=== PATIENT | female | born 1930 | race Caucasian/White ===

== ENCOUNTER 2017-07-27 12:10 | Inpatient (IN) | payer MEDICARE, MEDICAID ==
[2017-07-27] MEDS ORDERED: cefTRIAXone\\ROCEPHIN 2 GM in Sodium Chloride 0.9% 100 ML IVPB SCH (12:30)
[2017-07-27 13:06] LABS: Base Excess-Venous -0.6 mmol/L (0 (+/- 2.5)); CO2 Tension (PvCO2) 63.8 mmHg (41.0-51.0); Calcium, Ionized 1.13 mmol/L (1.12-1.32); Hemoglobin - Calc 12.7 g/dL (12.0-18.0); Lactate 4.47 mmol/L (0.50-2.20); Potassium 3.8 mmol/L (3.4-4.7); T. Carbon Dioxide 29.9 mmol/L (1.0-85.0); vO2 Saturation-calc 39.1 % (94-98)
[2017-07-27] MEDS ORDERED: Acetaminophen 650 MG Suppository ONE (13:14)
[2017-07-27 14:41] LABS: Amphetamine Not Detected (NotDetected); Barbiturates Screen Not Detected (NotDetected); Benzodiazepine Screen Not Detected (NotDetected); Cocaine Metabolite Screen Not Detected (NotDetected); Medtox Control Line Valid? VALID (VALID); Medtox Reader # READER 1; Methadone Not Detected (NotDetected); Methamphetamine Not Detected (NotDetected); Opiate Screen Not Detected (NotDetected); Oxycodone Screen Not Detected (NotDetected); Phencyclidine (PCP) Not Detected (NotDetected); THC/Cannabinoid Screen Not Detected (NotDetected); Tricyclic Screen Not Detected (NotDetected)
[2017-07-27 15:02] LABS: Acetaminophen Less than 6.0 mcg/mL (10.0-30.0); Alcohol Less than 10 mg/dL (Less than 10); Salicylate Less than 8.0 mg/dL (15.0-30.0)
[2017-07-27 16:26] LABS: Bilirubin Negative (Negative); Blood, Urine Moderate (Negative); Clarity TURBID (Clear); Glucose, Urine (Dipstick) >=1000 mg/dL (Negative); Leukocyte Negative (Negative); Nitrite Positive (Negative); Protein, Urine (Dipstick) 100 mg/dL (Neg-Trace); Specific Gravity, Urine 1.025 (1.002-1.036); Urobilinogen 0.2 mg/dL (0.2-1.0)
[2017-07-27 16:36] LABS: Bacteria/HPF 4+ HPF (None Seen); Hyaline Casts/LPF 0-3 HYALINE CAST LPF (0-3 Hyaline); RBC/HPF 0-3 HPF (0-3); Squamous Epithelial 0-3 HPF (0-3); WBC/HPF 0-3 HPF (0-3)
[2017-07-27] MEDS ORDERED: Levothyroxine 100 MCG SDV IVP SCH (17:15)
--- NOTE | 2017-07-27 17:18 | PDOC.FPRHP ---
- History of Present Illness Chief Complaint: AMS History of Present Illness: 87 yo F w/hx of DM, CAD s/p 3vCABG, TIA, HTN, and hypothyroid here with complaint of AMS for 2 days. Per daughter on Thursday she became unarousable and EMS was called to the house where she became more awake and it was recommended that she see her PCP on Thursday. The next day she was apparently close to her baseline. Then today she was again found to be unresponsive and was transported to an outside ED. Initial labs were fairly inconclusive, however there was concern for an infection of some kind due to her fever of 100.6 and elevated lactic acid. She was then transferred to our facility for further care. In this ED she was found to be hyperglycemic to 494, lactic acid increased to 4.9 and a new UA was positive for nitrites and 4+ bacteria. On evaluation she was difficult to arouse and would make a weak attempt to answer questions and was unable to cooperate with physical exam. When asleep, she was unresponsive to pain other than sternal rub. Blood and Urine cultures were drawn and pt was started on rocephin. Per daughter pt has been off of all meds for 3-4 months. PCP: none - Allergies/Adverse Reactions Allergies Allergy/AdvReac Type Severity Reaction Status Date / Time No Known Allergies Allergy Verified 07/15/16 23:08 - Home Medications Medication Instructions Recorded Confirmed Type Aspirin 81 mg PO DAILY 11/16/12 07/27/17 History Esomeprazole Magnesium [NexIUM] 40 mg PO DAILY 11/16/12 07/27/17 History metFORMIN [Glucophage] 500 mg PO BID- 09/14/15 07/27/17 History Insulin Glargine,Hum.Rec.Anlog 5 unit SQ QPM 10/08/15 07/27/17 History [Lantus Solostar] Allopurinol [Zyloprim] 100 mg PO DAILY tablet 07/19/16 07/27/17 Rx Lisinopril [Zestril] 2.5 mg PO DAILY 30 Days tab 07/19/16 07/27/17 Rx Memantine HCl [Namenda] 5 mg PO DAILY #30 tab 07/19/16 07/27/17 Rx Donepezil HCl [Donepezil HCl ODT] 07/27/17 History Levothyroxine Sodium [Synthroid] 125 mcg PO 00 07/27/17 07/27/17 History NIFEdipine [Procardia XL] 30 mg PO DAILY 07/27/17 07/27/17 History Comments: Per [facility] clinic records - History PMHx: DM Hypothyroid HTN CAD Dementia GERD h/o TIA PSHx: L3-5 laminectomy 3v CABG FHx: Unk Social: Per daughter, no tobacco, etoh, or recreational drugs - Review of Systems ROS unobtainable: due to mental status (Answers below from daugther) Respiratory: denies: cough, congestion, shortness of breath Cardiovascular: denies: chest pain Gastrointestinal: denies: nausea, vomiting Neurological: denies: syncope, seizure - Vital signs BP: 147/88 HR: 76 RR: 18 Tmax: 100.6 Pox: 98% on RA Wt: 63 kg - Physical Exam Constitutional: other (Difficult to arouse, A&O x0) HEENT: normocephalic and atraumatic, PERRLA, no scleral icterus Neck: FROM, trachea midline -Neck: Carotid bruit b/l Chest: no lesions Heart: RRR -Heart: systolic murmur Lungs: CTAB, no respiratory distress, good air movement, no wheezing Abdomen: soft, non-tender, bowel sounds present -Musculoskeletal: unable to evaluate -Neurological: unable to evaluate other than PERRLA Skin: good turgor -Skin: mottled LE Heme/Lymphatic: no unusual bruising or bleeding FMR H&P: Results - Labs Result Diagrams: 07/28/17 04:31 07/28/17 04:31 Lab results: VBG pCO2 63.8 mmHg (41.0-51.0) H 07/27/17 13:02 VBG pO2 27.0 mmHg (35.0-45.0) L 07/27/17 13:02 Lactic Acid 4.9 mmol/L (0.5-2.2) H* 07/27/17 13:04 Urine Ketones Negative mg/dL (Negative) 07/27/17 13:36 Urine Blood Moderate (Negative) H 07/27/17 13:36 Urine Nitrite Positive (Negative) H 07/27/17 13:36 Ur Leukocyte Esterase Negative (Negative) 07/27/17 13:36 Urine RBC 0-3 HPF (0-3) 07/27/17 13:36 Urine WBC 0-3 HPF (0-3) 07/27/17 13:36 Ur Squamous Epith Cells 0-3 HPF (0-3) 07/27/17 13:36 Urine Bacteria 4+ HPF (None Seen) H 07/27/17 13:36 From outside facility WBC 7.9 Lactic acid 2.4 Trop neg Glucose 494 - EKG Interpretation EKG: NSR, old inferior infarct - Radiology Interpretation Chest x-ray Status: report reviewed by me (No acute process) CT scan - head Status: report reviewed by me (No acute process) FMR H&P: A/P - Problem List (1) Altered mental state Current Visit: Yes Status: Acute Priority: High Code(s): R41.82 - ALTERED MENTAL STATUS, UNSPECIFIED Qualifiers: Altered mental status type: somnolence Qualified Code(s): R40.0 - Somnolence (2) UTI (urinary tract infection) Current Visit: Yes Status: Acute Priority: High Qualifiers: Hematuria presence: without hematuria (3) Acute kidney injury Current Visit: Yes Status: Acute Priority: Medium Code(s): N17.9 - ACUTE KIDNEY FAILURE, UNSPECIFIED (4) Chronic kidney disease, stage 3, mod decreased GFR Current Visit: Yes Status: Chronic Priority: Medium (5) DM2 (diabetes mellitus, type 2) Current Visit: Yes Status: Chronic Qualifiers: Diabetes mellitus termite inspector insulin use: with correction use Diabetes mellitus complication status: without complication Qualified Code(s): E11.9 - Type 2 diabetes mellitus without complications; Z79.4 - USP (current) use of insulin; Z79.4 - USP (current) use of insulin; Z79.4 - USP ( current) use of insulin; Z79.4 - USP (current) use of insulin (6) GERD (gastroesophageal reflux disease) Current Visit: Yes Status: Chronic Priority: Low Code(s): K21.9 - GASTRO- ESOPHAGEAL REFLUX DISEASE WITHOUT ESOPHAGITIS (7) Hypertension Current Visit: Yes Status: Chronic Priority: Medium Code(s): I10 - ESSENTIAL (PRIMARY) HYPERTENSION Qualifiers: Hypertension type: essential hypertension Qualified Code(s): I10 - Essential (primary) hypertension (8) Hypothyroid Current Visit: Yes Status: Chronic Priority: Medium Code(s): E03.9 - HYPOTHYROIDISM, UNSPECIFIED Qualifiers: Hypothyroidism type: unspecified Qualified Code(s): E03.9 - Hypothyroidism , unspecified (9) Mild dementia Current Visit: Yes Status: Chronic Priority: Medium Code(s): F03.90 - UNSPECIFIED DEMENTIA WITHOUT BEHAVIORAL DISTURBANCE (10) CAD (coronary artery disease) Current Visit: Yes Status: Chronic Priority: Medium Code(s): I25.10 - ATHSCL HEART DISEASE OF [place] CORONARY ARTERY W/O ANG PCTRS Qualifiers: Coronary Disease-Associated Artery/Lesion type: bypass graft [place] vs. transplanted heart: [place] heart Associated angina: with unspecified angina Qualified Code(s): I25.709 - Atherosclerosis of coronary artery bypass graft(s) , unspecified, with unspecified angina pectoris - Plan AMS 2/2 UTI - continue rocephin - admit to IMCU dt GCS of 8 - IVF - repeat lactic acid q4 - Blood/Urine Cx pending - CBC/CMP in am UTI - abx as above AoCKD - IVF as above - BMP in am Hypothyroid - restart synthroid DM - restart known home meds - ACHS accucheck - mod SSI - low carb diet when GCS improves Lactic acidosis - as above CAD - restart statin GERD - restart home PPI HTN - restart home meds Dementia - home meds PPx for DVT - SCD Code full Diet NPO until ST eval and improvement of GCS FMR H&P: Upper Level - Pertinent history 87 yo CF with PMHx DM, CAD, hypothyroidism presented to outside hospital for confusion and difficulty to arouse at home. Pt was previously managed at [facility] until moved to [place] and has not yet established with new PCP in last few months. Off all meds currently. On Thursday, pt was difficult to arouse per family and slept majority of day and night. Awoke Thursday with normal mentation. Ate appropriately during day until skipped dinner. Pt went to bed and has been difficult to arouse since then. Family denies any symptoms except difficulty to arouse and irritability when touched. Endorsed incontinence on Thursday which is new. No cough, SOB, congestion, fever/chills. Found to have fever in outside ED. Hyperglycemic to 494 (not on any DM tx). - Pertinent findings Gen: unable to arouse except to sternal rub; A&O x0, attempted to verbalize briefly but incoherent HEENT: pinpoint pupils, EOMI, MMM, TMs pearly desouza with cone Heart: 3/6 systolic murmur, RRR Lungs: CTAB, no rales/rhonchi, no increased WOB Abd: soft, NT/ND, BS+ MSK: unable to assess strength Neuro: normoactive reflexes bilaterally, unable to assess strength, sensation, cerebellar status, or gait. Skin: cap refill <2 sec, surgical scar over L3-L5; blanching erythema over sacrum - Plan Date/Time: 07/27/17 1711 1. AMS 2/2 UTI. Initially working up for AMS without source. UA from outside hospital not convincing of infection. Repeated in ED and more consistent with infection. Treat with rocephin and IV fluids. Check urine culture. Repeat lactate as elevated. Other potential etiologies to AMS include elevated TSH and hypoxia/mild hypercarbia (although likely acute 2/2 AMS but not suspected etiology). Initially considered LP although difficulties due to L3-L5 laminectomy. Discussed with IR about performing although decided against after pt awoke more in the ED. Admit to IMCU due to periods of unresponsiveness. Expect 2-3 day stay. 2. PIERRE on CKD3. S/p 3 L NS. Continue IV fluids overnight. Recheck lactate in 4 hours. VSS. Hold nephrotoxic agents. BMP in AM. 3. Hypothyroidism. Not currently taking Synthroid. Will start on previous dose of 125 mcg when tolerating PO. Does not appear in myxedema coma so no need for IV synthroid. 4. DM2. Restart home meds that are known. Accuchecks and SSI. 5. HTN. Monitor BPs as infection resolves. Restart known home meds as needed. Not recently taking. 6. CAD. Restart ASA. I, Zoran Gimenez, have evaluated this patient and agree with findings/plan as outlined by purchasing internship resident. Pertinent changes/additions are listed here.
[2017-07-27 17:32] LABS: Lactic Acid 2.6 mmol/L (0.5-2.2)
[2017-07-27] MEDS ORDERED: Dextrose 5% in Water 1,000 ML IV PRN (18:16)
[2017-07-27] MEDS ORDERED: HumaLOG 300 UNITS/3 ML VIAL SC PRN ×2 (18:16)
[2017-07-27] MEDS ORDERED: Dextrose 50% Abboject 50 ML SYRINGE SLOW IVP PRN (18:16)
[2017-07-27] MEDS ORDERED: cefTRIAXone\\ROCEPHIN 1 GM in Sodium Chloride 0.9% 100 ML IVPB SCH (20:15)
[2017-07-27] MEDS ORDERED: Acetaminophen 325 MG TAB PO PRN (20:15)
[2017-07-27] MEDS: Sodium Chloride 0.9% 1,000 ML IV SCH (20:30)
[2017-07-27] MEDS: INSULIN DETEMIR SC SCH (20:48)
[2017-07-27 20:57] LABS: Actual Bicarbonate (HCO3a) 23.2 mEq/L (22-26); Base Excess (BEa) -1.5 mEq/L (0 (+/-) 2.5); O2 Tension (PaO2) 102.2 mmHg (80.0-100.0); pH, Arterial 7.39 (7.35-7.45)
[2017-07-27 20:58] LABS: Calcium, Ionized 1.1 mmol/L (1.12-1.30); Hematocrit-ABG 31.3 % (36.0-47.0); Hemoglobin (Hb) 10.6 g/dL (12.0-16.0); Puncture Site LRA
[2017-07-27] MEDS ORDERED: Non-Formulary Item 1 EACH (Insulin Glargine,Hum.Rec.Anlog 5 UNIT) SQ SCH (21:00)
[2017-07-27 21:51] LABS: Lactic Acid 3.1 mmol/L (0.5-2.2)
--- NOTE | 2017-07-27 22:50 | PDOC.EVN ---
Event Note - Event Note Event Note: Pt seen and examined. Case discussed with Dr. Dobbs and Dr. Valdez and agree with resident's documentation. BRiefly this is an 87 year old female with PMH of type 2 Dm, hypothyroidism, CAD s/p CABG, HTN, dementia who presents with altered MS. Family reports that she was difficult to arouse on Thursday and EMS was called after which she improved and was instructed to followup with pcp on Thursday. She seemed improved on Thursday but then was again difficult to arouse today. Ssen at [facility] in [facility] and then transferred here for further evaluation. Of note patient has been off her chornic medications for the last 2 months. PMH/ PSH/Meds/ SH/All reviewed and agree with resident's documentation. PE: P 77 BP 143/79 T 100.6 RR 18 Exam repeated by me and significant for pupils 2-3 mm; opens eyes and withdraws to sternal rub. Mumbles but unable to understand responses. Does not follow commands. Lungs- CTA b/l CV- RRR, 3/[address] brain- no acute findings. ABG, CBC normal. Cr= 2.42 TSH=59. Cardiac enzymes negative. U/A- (+) nitrites, (+) bacteria, (+) blood CXR- no acute findings. A/P: 1) Altered mental status- suspect UTI as source if infection. Continue current abx. Blood and urine cultures pending. 2) Hypothyroidism- off meds recently; restart replacement. 3) PIERRE- received 3 L fluid. Monitor I/Os; continue maintenance fluid.
[2017-07-28] MEDS: Sodium Chloride 0.9% 1,000 ML IV SCH (03:04)
[2017-07-28 04:50] LABS: #Lymphocytes 0.7 thou/uL (1.20-3.40); #Monocytes 0.5 thou/uL (0.11-0.59); #Neutrophils 4.1 thou/uL (1.40-6.50); %Basophils 0.2 % (0.0-1.0); %Eosinophils 0.4 % (0.0-10.0); %Lymphocytes 13.6 % (21.0-51.0); %Monocytes 9.3 % (0.0-10.0); %Neutrophils 76.5 % (42.0-75.0); Hemoglobin 12.3 g/dL (12.0-16.0); Mean Corpuscular Hemoglobin 33.1 pg (27.0-31.0); Mean Platelet Volume 8.7 fL (7.4-10.4); Platelet Count 156 thou/uL (130-400); Red Blood Cell (RBC) Count 3.71 mill/uL (4.20-5.40); White Blood Cell (WBC) Count 5.4 thou/uL (4.8-10.8)
[2017-07-28] MEDS ORDERED: Acetaminophen 650 MG in Premix Bag 1 BAG IVPB PRN (04:53)
[2017-07-28 05:04] LABS: ALT (SGPT) 23 U/L (8-55); AST (SGOT) 59 U/L (5-34); Albumin 3.5 g/dL (3.4-4.8); Alkaline Phosphatase 68 U/L (40-150); Anion Gap 15 mmol/L (10-20); BUN (Urea Nitrogen) 37 mg/dL (9.8-20.1); Bilirubin, Total 0.4 mg/dL (0.2-1.2); Calc. Creatinine Clearance 20 mL/min (70-130); Carbon Dioxide 20 mmol/L (23-31); Chloride 112 mmol/L (98-107); Estimated GFR-MDRD 30; Globulin 3.1 g/dL (2.4-3.5); Glucose 140 mg/dL (83-110); Potassium 3.3 mmol/L (3.5-5.1); Protein, Total 6.6 g/dL (6.0-8.3); Sodium 144 mmol/L (136-145)
[2017-07-28] MEDS ORDERED: Levothyroxine Sodium 125 MCG TAB PO SCH (06:00)
[2017-07-28] MEDS ORDERED: Potassium Chloride 40 MEQ in Sodium Chloride 0.9% 500 ML IVPB SCH (06:15)
[2017-07-28] MEDS ORDERED: Magnesium Sulfate 1 GM, Admixture Fee 1 EACH in Sodium Chloride 0.9% 100 ML IVPB SCH (06:45)
[2017-07-28 07:11] LABS: Lactic Acid 1.3 mmol/L (0.5-2.2)
--- NOTE | 2017-07-28 07:36 | PDOC.FM ---
- Subjective Subjective: 7 yo F w/hx of DM, CAD s/p 3vCABG, TIA, HTN, and hypothyroid who was admitted for AMS secondary to UTI yesterday. On admission pt was difficult to arouse and would not answer questions or cooperate with physical exam. Today she is awake, however A&O times 0 with very little attempt to respond to questions or commands. When asked if she was in pain, she did attempt to say "No" and when asked to squeeze my hand with her R hand a slight attempt was made. Otherwise, pt would not respond to questions or commands. Per nursing, there were no acute events over night. - Objective MAR Reviewed: Yes Vital Signs & Weight: Vital Signs (12 hours) Temp Pulse Resp BP Pulse Ox 07/28/17 06:08 100.9 F H 07/28/17 04:26 101.4 F H 81 18 158/63 H 98 07/28/17 00:13 99.3 F 76 16 165/61 H 100 07/27/17 22:03 71 16 146/57 H 100 Weight Weight 50.6 kg I&O: 07/27/17 07/28/17 07/29/17 06:59 06:59 06:59 Intake Total 1425 Balance 1425 Result Diagrams: 07/28/17 04:31 07/28/17 04:31 <Kai Dobbs - Last Filed: 07/28/17 07:32> - Objective Vital Signs & Weight: Vital Signs (12 hours) Temp Pulse Resp BP Pulse Ox 07/28/17 09:47 77 07/28/17 07:54 98.7 F 77 16 145/61 H 96 07/28/17 06:08 100.9 F H 07/28/17 04:26 101.4 F H 81 18 158/63 H 98 07/28/17 00:13 99.3 F 76 16 165/61 H 100 Weight Weight 50.6 kg I&O: 07/27/17 07/28/17 07/29/17 06:59 06:59 06:59 Intake Total 1425 Balance 1425 Result Diagrams: 07/28/17 04:31 07/28/17 04:31 <Helder Ellis - Last Filed: 07/28/17 10:42> Phys Exam - Physical Examination Constitutional: NAD HEENT: moist MMs, sclera anicteric Neck: no JVD, supple, full ROM Respiratory: clear to auscultation bilateral Cardiovascular: RRR Systolic murmur that radiates to carotids Gastrointestinal: soft, non-tender, no distention, positive bowel sounds Musculoskeletal: no edema Unable to complete exam. With the exception of an attempt to squeeze with R hand, pt does not move extremities. Reflexes intact, PERRLA Lymphatic: no nodes Deviation from normal: A&O x0 Skin: no rash <Kai Dobbs - Last Filed: 07/28/17 07:32> Dx/Plan (1) Altered mental state Code(s): R41.82 - ALTERED MENTAL STATUS, UNSPECIFIED Status: Acute QualifierTitle: Altered mental status type: somnolence Qualified Code(s) : R40.0 - Somnolence (2) UTI (urinary tract infection) Status: Acute QualifierTitle: Hematuria presence: without hematuria (3) Acute kidney injury Code(s): N17.9 - ACUTE KIDNEY FAILURE, UNSPECIFIED Status: Acute (4) Chronic kidney disease, stage 3, mod decreased GFR Status: Chronic (5) DM2 (diabetes mellitus, type 2) Status: Chronic QualifierTitle: Diabetes mellitus jail insulin use: with digital solution architect use Diabetes mellitus complication status: without complication Qualified Code(s): E11.9 - Type 2 diabetes mellitus without complications; Z79.4 - golf club manager (current) use of insulin; Z79.4 - FPC (current) use of insulin; Z79.4 - FPC (current) use of insulin; Z79.4 - golf club manager (current) use of insulin (6) GERD (gastroesophageal reflux disease) Code(s): K21.9 - GASTRO-ESOPHAGEAL REFLUX DISEASE WITHOUT ESOPHAGITIS Status: Chronic (7) Hypertension Code(s): I10 - ESSENTIAL (PRIMARY) HYPERTENSION Status: Chronic QualifierTitle: Hypertension type: essential hypertension Qualified Code( s): I10 - Essential (primary) hypertension (8) Hypothyroid Code(s): E03.9 - HYPOTHYROIDISM, UNSPECIFIED Status: Chronic QualifierTitle: Hypothyroidism type: unspecified Qualified Code(s): E03.9 - Hypothyroidism, unspecified (9) Mild dementia Code(s): F03.90 - UNSPECIFIED DEMENTIA WITHOUT BEHAVIORAL DISTURBANCE Status: Chronic (10) CAD (coronary artery disease) Code(s): I25.10 - ATHSCL HEART DISEASE OF [place] CORONARY ARTERY W/O ANG PCTRS Status: Chronic QualifierTitle: Coronary Disease-Associated Artery/Lesion type: bypass graft [place] vs. transplanted heart: [place] heart Associated angina: with unspecified angina Qualified Code(s): I25.709 - Atherosclerosis of coronary artery bypass graft(s), unspecified, with unspecified angina pectoris - Plan Plan: AMS 2/2 UTI - Pt shows some improvement from admission. She is awake and looking around the room this morning, however is generally unresponsive to verbal commands. Pt has hx of dementia, however per daughter pt walks and talks at baseline and is generally aware of surroundings. - continue rocephin - Has had 4.5 L NS, will change to maintenance rate and monitor for overload. - Most recent lactic acid improved to 1.3 - Blood/Urine Cx pending - CBC/CMP in am UTI - abx as above AoCKD - Cr is improving. PIERRE resolving, however it is unclear as to this pts baseline. 1 years ago baseline appeared to be around 1.1 - IVF at maintenance rate - BMP in am Hypothyroid - restart synthroid IV until pt is appropriate of PO DM - restart known home meds - ACHS accucheck. Add D5 to fluids if BG is low - mod SSI - low carb diet when GCS improves Lactic acidosis - resolved CAD - restart statin when appropriate for PO GERD - restart home meds when appropriate for PO HTN - restart home meds when appropriate for PO. Add PRN IV antihypertensive medication while NPO Dementia - restart home meds when appropriate for PO Dispo: Guarded. Pt shows small improvement today as compared to admission. Will continue to treat known infectious source. <Kai Dobbs - Last Filed: 07/28/17 07:32> Attending Addendum - Attending Addendum Date/Time: 07/28/17 2633 I personally evaluated the patient and discussed the management with Dr. Dobbs. I agree with the History, Examination, Assessment and Plan documented above with any addition or exceptions noted below. Patient admitted for encephalopathy thought currently to be due to UTI. She continues on Rocephin for Gram- UTI as well as fluids . She had a mild fever overnight but has been on therapy less than 24 hours. Continue current mgmt. Will consult speech therapy to see if patient is safe to swallow.Lactate improved. Other causes of AMS overall excluded with the exception of seizure activity though less likely. Will get neuro on board with possible EEG tomorrow if not making clinical improvement. Remain in IMCU for close monitoring. <Helder Ellis - Last Filed: 07/28/17 10:42>
[2017-07-28] MEDS ORDERED: metFORMIN 500 MG TAB PO SCH (08:00)
[2017-07-28] MEDS ORDERED: Levothyroxine 100 MCG SDV IVP SCH (08:00)
[2017-07-28] MEDS ORDERED: NIFEdipine XL 30 MG TAB PO SCH (09:00)
[2017-07-28] MEDS ORDERED: Lisinopril 2.5 MG TAB PO SCH (09:00)
[2017-07-28] MEDS: Lactated Ringer's 1,000 ML IV SCH ×3 (09:45→20:48)
[2017-07-28] MEDS ORDERED: hydrALAZINE 20 MG/ML VIAL SLOW IVP PRN ×2 (10:32→17:29)
[2017-07-28] MEDS ORDERED: Acetaminophen 325 MG Suppository PR PRN (10:34)
[2017-07-28] MEDS ORDERED: cefTRIAXone\\ROCEPHIN 1 GM, Syringe 0.4 ML in Sterile Water 9.6 ML SLOW IVP SCH (13:00)
[2017-07-28 16:19] LABS: Potassium 4.2 mmol/L (3.5-5.1)
--- NOTE | 2017-07-28 17:41 | CT ---
CT HEAD WITHOUT CONTRAST: 07/28/17 Multiple axial tomograms obtained through the head without contrast enhancement. HISTORY: Seizures. Comparison made to recent head CT of 07/23/16. There is sulcal effacement involving the right temporal lobe and the right parasylvian region. This a ppears to represent a new finding when compared to the prior study. Findings are consistent with an e renu right MCA infarct. There is no evidence of hemorrhage. 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 There is new sulcal effacement inv olving the right temporal and parasylvian region. Patient's nurse in ICU notified at time of dictation. Dr. Carbajal will be contacted. POS: [facility]
[2017-07-28] MEDS ORDERED: Aspirin 300 MG Suppository PR SCH (18:00)
[2017-07-28 18:02] LABS: Anion Gap 17 mmol/L (10-20); BUN (Urea Nitrogen) 31 mg/dL (9.8-20.1); Calc. Creatinine Clearance 20 mL/min (70-130); Carbon Dioxide 18 mmol/L (23-31); Chloride 114 mmol/L (98-107); Estimated GFR-MDRD 30; Glucose 105 mg/dL (83-110); Sodium 145 mmol/L (136-145)
[2017-07-28] MEDS ORDERED: Midazolam HCl 2 mg/2 ml Vial ONE (19:21)
--- NOTE | 2017-07-28 19:28 | RAD ---
PORTABLE SUPINE CHEST ONE VIEW: 07/28/17 HISTORY: 87-year-old female to evaluate central line placement position. COMPARISON: 07/23/16. FINDINGS: Right jugular venous catheter has been place with tip in the superior vena cava. Postop midline bernal otomy. Loop recorder overlying the upper left chest. Old granulomatous disease. No pneumothorax, pleu ral effusion, or other acute process. IMPRESSION: Right jugulovenous catheter in place without complication. No new process. Stable from prior study. POS: [facility]
[2017-07-28] MEDS ORDERED: Norepinephrine 8 MG/0.9% NS 250 ML ONE (19:34)
[2017-07-28] MEDS ORDERED: Norepinephrine 8 MG/0.9% NS 250 ML IVPB PRN (19:37)
[2017-07-28] MEDS ORDERED: Sedation Protocol FS SCH (19:40)
[2017-07-28] MEDS ORDERED: Morphine 2 MG/ML SYRINGE SLOW IVP PRN (19:42)
[2017-07-28] MEDS ORDERED: DISCONTINUE PREVIOUS NARCOTIC PAIN MEDICATIONS AND BENZODIAZEPINES FS SCH (19:42)
[2017-07-28] MEDS ORDERED: Lorazepam 2 MG/ML VIAL SLOW IVP PRN (19:42)
[2017-07-28] MEDS ORDERED: fentaNYL Citrate/PF 2,000 MCG in Sodium Chloride 0.9% 60 ML IV SCH (19:42)
[2017-07-28] MEDS ORDERED: Propofol 1,000 MG/100 ML VIAL IV PRN (19:42)
[2017-07-28] MEDS ORDERED: Fentanyl BOLUS 250 ML IVPB PRN (19:42)
[2017-07-28] MEDS ORDERED: Morphine 10 MG/ML VIAL SLOW IVP PRN (19:44)
--- NOTE | 2017-07-28 20:19 | PDOC.EVN ---
Event Note - Event Note Event Note: Was called to bedside for Code Mal due to CT finding of R MCA CVA. This CT was ordered following recommendations from previous neuro consult secondary to a witnessed partial seizure around 1300 today. Pt was not a candidate for TPA due to recent seizure, it was recommended by neuro to give the patient ASA and order additional imaging to include echo and carotid US. Evaluation of the patient at the time of code green found her to be in an unchaged mental status from previous evaluation this morning. She was generally unresponsive to verbal commands or painful stimulus, however spontaneously opened her eyes. Additionally, her right arm was flexed at the elbow similar to the likely seizure witnessed earlier in the day. Orders were placed for q4 neuro checks and permissive HTN. PT was unable to take NPO and therefore could not be started on statin. Pt was otherwise stable. Will continue to monitor progress
--- NOTE | 2017-07-28 20:23 | PDOC.EVN ---
Event Note - Event Note Event Note: INDICATION: Hypotension with need for pressure support PROCEDURE ASSEMBLY INSTRUCTIONS WRITER: Kai Dobbs DO; Isiah Caceres MD ATTENDING PHYSICIAN: James Thompson MD in Attendance CONSENT: Consent was obtained from daughter prior to the procedure. Indications, risks, and benefits were explained at length. PROCEDURE SUMMARY: A time out was performed. My hands were washed immediately prior to the procedure. I wore a surgical cap, mask with protective eyewear, full gown and sterile gloves throughout the procedure. The patient was placed in Trendelenburg position. Right neck and chest region was prepped using chlorhexidine scrub and draped in sterile fashion using a three quarter sheet drape and sterile towels. The medial and lateral heads of the sternocleidomastoid muscle were identified as was the carotid pulse. The Internal Jugular vein was identified using the ultrasound. Anesthesia was achieved over the vein using 1% lidocaine. Using real-time out of plane guidance , the introducer needle was inserted into the Internal Jugular vein under direct ultrasound visualization. Venous blood was withdrawn. The syringe was removed and a guidewire was advanced into the introducer needle. The guidewire was visualized in the Internal Jugular Vein by ultrasound. A small incision was made at the skin surface with a scalpel and the introducer needle was exchanged for a dilator over the guidewire. After appropriate dilation was obtained, the dilator was exchanged over the wire for a triple lumen central venous catheter. The wire was removed and the catheter was sutured in place at 18 cm. A sterile dressing was placed over the catheter at the insertion site. The patient tolerated the procedure without any hemodynamic compromise. At time of procedure completion, all ports aspirated and flushed properly. Post-procedure chest x-ray is pending at this time. Estimated blood loss is minimal. <Kai Dobbs - Last Filed: 07/28/17 20:19> Attending Addendum - Attending Addendum Date/Time: 07/28/172055 I personally evaluated the patient; discussed the management; and supervised the CVC insertion procedure with Drs. Dobbs and Nicki. Placement confirmed with CXR. No evidence of pneumothorax on CXR. <James Thompson - Last Filed: 07/28/17 20:59>
--- NOTE | 2017-07-28 20:27 | PDOC.EVN ---
Event Note - Event Note Event Note: INDICATION: GCS of 7 with concern for ability to protect airway PROCEDURE DIGITAL ASSET SPECIALIST: Kai Dobbs DO; Elvin Rahman MD ATTENDING PHYSICIAN: James Thompson MD in attendance CONSENT: Consent was obtained from family prior to the procedure. Indications, risks, and benefits were explained at length. PROCEDURE SUMMARY: My hands were washed immediately prior to the procedure. The patient was placed on a quality assurance monitor chassis including continuous pulse oximetry. The patient was adequately preoxengenated via bag mask ventilation for 5 minutes prior to procedure. The patient received 5mg of for induction. Using a 3 glidescope and a size 7.0 endotracheal tube with stylet, the patient was intubated on the 2nd attempt. The stylet was removed and cuff balloon was inflated. Appropriate endotracheal tube position was confirmed by direct visualization of vocal cord passage, fogging of the tube, CO2 colometric indicator and symmetric breath sounds. The tube was secured at 21 cm at the lips. Post intubation chest x-ray is pending at this time. <Kai Dobbs - Last Filed: 07/28/17 20:24> Attending Addendum - Attending Addendum Date/Time: 07/28/172058 I personally evaluated the patient; discussed the management; and supervised the ET tube placement procedure with Dr. oDbbs and Mily. <James Thompson - Last Filed: 07/28/17 21:02>
[2017-07-28] MEDS ORDERED: Magnesium Sulfate 3 GM in Sodium Chloride 0.9% 100 ML IVPB SCH (20:30)
--- NOTE | 2017-07-28 20:31 | RAD ---
PORTABLE SUPINE CHEST: 07/28/17 HISTORY: Assess ET tube placement. ICU followup. ET tube is in place with tip above scottie. NG tube has tip coiled in the gastric fundus. Central line via the right jugular has tip overlying the SVC. The lung rowley appear clear and unchanged. IMPRESSION: No acute process. Tubes and catheters appear adequately positioned. POS: [facility]
[2017-07-28 20:48] LABS: Base Excess (BEa) -6.1 mEq/L (0 (+/-) 2.5); CO2 Tension 26.4 mmHg (35.0-45.0); Calcium, Ionized 1.1 mmol/L (1.12-1.30); Hematocrit-ABG 28.9 % (36.0-47.0); Hemoglobin (Hb) 10.6 g/dL (12.0-16.0); pH, Arterial 7.43 (7.35-7.45)
[2017-07-28 20:49] LABS: Puncture Site LRA
--- NOTE | 2017-07-28 22:24 | CON ---
DATE OF CONSULTATION: 07/28/2017 NEUROLOGY CONSULTATION CONSULTING PHYSICIAN: Hospitalist Service. IMPRESSION: 1. Mental status decline with subsequent development of what appears to be focal seizures on the lef t side of the body. PLAN: 1. Fosphenytoin load of 1000 mg. 2. Continue maintenance of 100 t.i.d. 3. Follow clinical course. HISTORY OF PRESENT ILLNESS: Ms. Shane is an 87-year-old white female with history of mild dementia who presented with mental status changes over the last 2 days. She was brought into the emergency r oom for evaluation. Her urinalysis suggestive of possible urinary tract infection, been running some low grade fever around 101. She has continued to be poorly responsive. Earlier today she started h aving focal twitching of the left arm. She never had any history of any seizures in the past. An EE G was performed this afternoon. There is some diffuse slowing, but no definite seizure activity is v isible. PAST MEDICAL HISTORY: As listed above. ALLERGIES: None reported. SOCIAL HISTORY: No tobacco or alcohol use. She lives at home with her family. MEDICATIONS: Medication list was reviewed. REVIEW OF SYSTEMS: Not obtainable. PHYSICAL EXAMINATION: GENERAL: She is a well-nourished elderly lady lying in bed with her eyes deviated to the left. NEUROLOGIC: She has some fairly significant left head turn pressure, but it is not rhythmic. There is an irregular rhythmic jerking involving the left arm that causes the arm to elevate above her body . There is no involvement of the leg. Plantar responses were mute. She would not respond to verbal stimulation. Pupils were equal, would occasionally move to the midline, but primarily shifted to th e left when the rhythmic activity was present. I agree with loading her Celebrex. CT of the brain has been ordered to look for structural cause. C ontinue treatment for her urinary tract infection. Hopefully, the situation will shortly.
[2017-07-29] MEDS: INSULIN DETEMIR SC SCH (01:08)
[2017-07-29] MEDS ORDERED: Acetaminophen 325 MG/10.15 ML UDCUP PO PRN (02:04)
[2017-07-29] MEDS: Fosphenytoin Sodium 100 MG in Sodium Chloride 0.9% 50 ML IVPB SCH ×3 (02:30→17:16)
[2017-07-29 04:53] LABS: #Basophils 0.1 thou/uL (0.0-0.2); #Lymphocytes 0.7 thou/uL (1.20-3.40); #Monocytes 0.2 thou/uL (0.11-0.59); #Neutrophils 5.2 thou/uL (1.40-6.50); %Basophils 0.8 % (0.0-1.0); %Eosinophils 0.4 % (0.0-10.0); %Lymphocytes 11.7 % (21.0-51.0); %Monocytes 3.5 % (0.0-10.0); %Neutrophils 83.6 % (42.0-75.0); Hemoglobin 9.5 g/dL (12.0-16.0); Mean Corpuscular HGB CONC 33.6 g/dL (32.0-36.0); Mean Corpuscular Hemoglobin 33.4 pg (27.0-31.0); Mean Corpuscular Volume 99.4 fl (81.0-99.0); Mean Platelet Volume 8.8 fL (7.4-10.4); Platelet Count 149 thou/uL (130-400); RBC Distribution Width 12.1 % (11.5-14.5); Red Blood Cell (RBC) Count 2.85 mill/uL (4.20-5.40); White Blood Cell (WBC) Count 6.2 thou/uL (4.8-10.8)
--- NOTE | 2017-07-29 04:55 | CON ---
DATE OF CONSULTATION: 07/28/2017 HISTORY OF PRESENT ILLNESS: Ms. Shane is an 87-year-old female who was consulted this morning char use of presence in the intermediate care unit. Throughout the day, additional history was obtained from the son. Apparently, Mr. Shane was living with his son. The daughter drove up to the [facility] and took m om out of the son's house. There were 6 children altogether, four of them have passed. He thought he did reasonably good job taking care of her. Her blood sugar was always under control. Son tells me he just found out that the daughter had no place of residence and they have been living in a car for the past several months (he tells me 4 months). I have no way to confirm this and also evaluating her. She presented with altered mental status and was transferred here. She was found to have a bladder infection. Her urine culture is positive, but her blood cultures so far remain negative. He was initially assumed that she probably had cystitis leading to decompensati on and dementia, but she has been awakened. She was mumbling and not moving her extremities. She would not open her eyes and could not give a hi story. Son is actually very tearful when he was in the room, stating that he felt like he delayed his mother down, but the mother had gone to live with her daughter in the past and there had not been any big i ssues. He said he was contemplating placing his mom and a time clock mechanic care environment was trying to figure ou t what the finances were surrounding this when he got a call that she was in the hospital. The daughter was telling one of the nurses while I was in the room that her mother had waxing and wan ing mental status and actually become unresponsive and urinated on herself in the recent past. Unfortunately, while living with a daughter, he has not been taking any medicines for the past 4 fadumo hs. SOCIAL HISTORY: Nonsmoker, nondrinker. PAST MEDICAL HISTORY: Remarkable for diabetes, hypothyroidism, hypertension, coronary artery disease , dementia, lipid disorder, reflux disease, TIA in the past. PAST SURGICAL HISTORY: Lumbar spine surgery and had coronary bypass grafting in the past. FAMILY HISTORY: Negative for lung disease in early age. REVIEW OF SYSTEMS: Not obtainable. She was protecting her airway early today. As the day progressed, she started having intermittent fo cherri motor seizures more involving her left upper extremity and her face, then generalized. I did not witness any generalized seizure activity. With the first seizure I witnessed fortunately, the quality technician was in the house and presented to the bedside to do an EEG. She was sent for a noncontrast head CT. My index of suspicion for CVA was high at this point. CT by my review, right middle cerebral artery infarct. She was loaded with Dilantin and she got back from the CAT scanner. PHYSICAL EXAMINATION: VITAL SIGNS: This morning, she is afebrile, heart rate is in 70s, respiratory rate was in the teens. GENERAL: This evening, I am told she has become less responsive. HEENT: Pupils react. Sclerae are anicteric. She would not open her mouth to commands. LUNGS: She had a respiratory rate in the teens to low 20s. She had clear lungs. She is protecting airway early. HEART: Regular rhythm, no S3. ABDOMEN: Soft and nontender. EXTREMITIES: Without clubbing, cyanosis, or edema. 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 The son was adamant that she never be intubated, but he does not have any power of healthcare papers. The daughter until claimed to have power of healthcare, but has not produced any documents. The so n refuses to talk to the daughter of the patient while I was there and actually left emergently to dr alisha Martin to meet with his longer to get emergency power of healthcare papers with the assistance of his steam shovelman. When I was also in the room, the son was contacting Adult Protective Services to try to get protective custody of his mom. This creates absolutely horrible social dynamics, the son does not want his mother intubated, but per my discussion with him, but daughter apparently does. Because of her stroke and her altered mental status, she has been transferred to the Critical Care Un and will receive further aggressive care for now. Critical care time 40 minutes.
[2017-07-29 05:11] LABS: ALT (SGPT) 21 U/L (8-55); AST (SGOT) 64 U/L (5-34); Albumin 2.8 g/dL (3.4-4.8); Alkaline Phosphatase 50 U/L (40-150); Anion Gap 14 mmol/L (10-20); BUN (Urea Nitrogen) 27 mg/dL (9.8-20.1); Bilirubin, Total 0.3 mg/dL (0.2-1.2); Calc. Creatinine Clearance 22 mL/min (70-130); Calcium 7.1 mg/dL (7.8-10.44); Carbon Dioxide 16 mmol/L (23-31); Chloride 118 mmol/L (98-107); Estimated GFR-MDRD 34; Globulin 2.3 g/dL (2.4-3.5); Glucose 162 mg/dL (83-110); Magnesium 2.1 mg/dL (1.6-2.6); Protein, Total 5.1 g/dL (6.0-8.3); Sodium 145 mmol/L (136-145)
[2017-07-29] MEDS ORDERED: Potassium Chloride 40 MEQ in Premix Bag 1 BAG IVPB ONE (05:55)
[2017-07-29] MEDS ORDERED: Levothyroxine 100 MCG SDV IVP SCH (06:00)
[2017-07-29] MEDS: Lactated Ringer's 1,000 ML IV SCH ×2 (06:08→17:20)
[2017-07-29 06:55] LABS: Actual Bicarbonate (HCO3a) 14.9 mEq/L (22-26); Base Excess (BEa) -8.5 mEq/L (0 (+/-) 2.5); CO2 Tension 24.7 mmHg (35.0-45.0); O2 Tension (PaO2) 70.7 mmHg (80.0-100.0)
[2017-07-29 06:56] LABS: Analyzer IN Cardio ER; Calcium, Ionized 1.1 mmol/L (1.12-1.30); Hematocrit-ABG 26.4 % (36.0-47.0); Hemoglobin (Hb) 9.7 g/dL (12.0-16.0); Puncture Site L.R.
[2017-07-29 06:57] LABS: ALV-art Gradient 183.625 (0-20)
--- NOTE | 2017-07-29 07:57 | RAD ---
CHEST 1 VIEW: HISTORY: Dyspnea. Intubated. COMPARISON: 07/28/17. FINDINGS: Cardiac silhouette is magnified by projection. Pulmonary vasculature is unremarkable. Mediastinum i s midline with postoperative changes. Lines and tubes and electronic monitoring device appear unchan ged in position. No lobar consolidation or evidence of pneumothorax. personnel monitor leads overlie the chest. IMPRESSION: Stable radiographic appearance of the chest. POS: KAYLEN
--- NOTE | 2017-07-29 08:47 | PDOC.FM ---
Addendum entered and electronically signed by Kai Dobbs DO 07/29/17 11:01: Addendum to Plan concerning CVA. - In outside ED on the day of admission a CT brain was negative for acute processes as noted in H&P. What was noted was generalized cerebral atrophy greater on the left, mild microvascular ischemic changes, and a remote left subinsular cortex infarct noted. While CVA was considered on admission, the more likely source iof AMS with the given information was infectious. Evaluated patient on rounds yesterday morning and there was no apparent seizure like activity. Upon witnessing a partial seizure yesterday afternoon neuro was consulted and further work up found what appears to be a new CVA. Original Note: - Subjective Subjective: 87 yo F w/hx of DM, CAD s/p 3vCABG, TIA, HTN, and hypothyroid who was admitted for AMS secondary to UTI. Yesterday was complicated by a new onset seizure 2/2 new R MCA CVA which resulted in a Code Green being called. Echo and carotid dopplers were taken and still pending. Pt then went from BP in the 180s systolic immediately following CVA to 60-70 systolic and is now requiring pressure support via R IJ that was placed yesterday. There was concern for continued ability to protect airway dt GCS being less than and and pt was intubated. Over night pt had multiple recorded febrile temps up to 101.5. Nursing did note that she has started to move all four limbs and is responding to touch in her feet. - Objective MAR Reviewed: Yes Vital Signs & Weight: Vital Signs (12 hours) Temp Pulse Resp BP Pulse Ox 07/29/17 07:31 98.5 F 85 14 98 07/29/17 07:00 98.5 F 07/29/17 06:20 56 L 123/50 L 07/29/17 06:00 14 07/29/17 04:00 99.6 F 14 07/29/17 01:00 100.8 F H 07/29/17 00:00 14 07/28/17 23:30 99.6 F 07/28/17 22:00 14 Weight Weight 55 kg Most Recent Monitor Data Heart Rate from ECG 59 NIBP 121/52 NIBP BP-Mean 69 Respiration from ECG 14 SpO2 100 I&O: 07/28/17 07/29/17 07/30/17 06:59 06:59 06:59 Intake Total 1425 4597 0 Output Total 820 30 Balance 1425 3777 -30 Result Diagrams: 07/29/17 04:46 07/29/17 04:46 Radiology Reviewed by me: Yes (Line, ET tube, OG tube in place. Nothing acute) <Kai Dobbs - Last Filed: 07/29/17 08:43> - Objective Vital Signs & Weight: Vital Signs (12 hours) Temp Pulse Resp BP Pulse Ox 07/29/17 10:51 65 130/48 L 07/29/17 10:00 17 07/29/17 08:00 14 07/29/17 07:31 98.5 F 85 14 98 07/29/17 07:00 98.5 F 07/29/17 06:20 56 L 123/50 L 07/29/17 06:00 14 07/29/17 04:00 99.6 F 14 07/29/17 01:00 100.8 F H 07/29/17 00:00 14 Weight Admit Weight 50.6 kg Weight 55 kg Most Recent Monitor Data Heart Rate from ECG 68 NIBP 119/50 NIBP BP-Mean 79 Respiration from ECG 16 SpO2 98 I&O: 07/28/17 07/29/17 07/30/17 06:59 06:59 06:59 Intake Total 1425 4597 0 Output Total 820 210 Balance 1425 3777 -210 Result Diagrams: 07/29/17 04:46 07/29/17 04:46 <Helder Ellis - Last Filed: 07/29/17 11:35> Phys Exam - Physical Examination HEENT: PERRLA, moist MMs, sclera anicteric Neck: no JVD Respiratory: clear to auscultation bilateral Cardiovascular: RRR Systolic murmur Gastrointestinal: soft, non-tender, no distention, positive bowel sounds Musculoskeletal: no edema Neurological: moves all 4 limbs Responsive to light touch on the plantar surface of her feet. Withdraws from pain. Does not respond to name. Sedated w/fentanyl Deviation from normal: Sedated as above Skin: no rash, normal turgor <Kai Dobbs - Last Filed: 07/29/17 08:43> Dx/Plan (1) CVA (cerebral vascular accident) Code(s): I63.9 - CEREBRAL INFARCTION, UNSPECIFIED Status: Acute QualifierTitle: Precerebral and cerebral artery: middle cerebral artery Laterality of affected vessel: right (2) Altered mental state Code(s): R41.82 - ALTERED MENTAL STATUS, UNSPECIFIED Status: Acute QualifierTitle: Altered mental status type: somnolence Qualified Code(s) : R40.0 - Somnolence (3) UTI (urinary tract infection) Status: Acute QualifierTitle: Hematuria presence: without hematuria (4) Chronic kidney disease, stage 3, mod decreased GFR Status: Chronic (5) DM2 (diabetes mellitus, type 2) Status: Chronic QualifierTitle: Diabetes mellitus usp insulin use: with usp use Diabetes mellitus complication status: without complication Qualified Code(s): E11.9 - Type 2 diabetes mellitus without complications; Z79.4 - assisted (current) use of insulin; 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; Z79.4 - assisted (current) use of insulin; Z79.4 - assisted (current) use of insulin (6) GERD (gastroesophageal reflux disease) Code(s): K21.9 - GASTRO-ESOPHAGEAL REFLUX DISEASE WITHOUT ESOPHAGITIS Status: Chronic (7) Hypertension Code(s): I10 - ESSENTIAL (PRIMARY) HYPERTENSION Status: Chronic QualifierTitle: Hypertension type: essential hypertension Qualified Code( s): I10 - Essential (primary) hypertension (8) Hypothyroid Code(s): E03.9 - HYPOTHYROIDISM, UNSPECIFIED Status: Chronic QualifierTitle: Hypothyroidism type: unspecified Qualified Code(s): E03.9 - Hypothyroidism, unspecified (9) Mild dementia Code(s): F03.90 - UNSPECIFIED DEMENTIA WITHOUT BEHAVIORAL DISTURBANCE Status: Chronic (10) CAD (coronary artery disease) Code(s): I25.10 - ATHSCL HEART DISEASE OF [place] CORONARY ARTERY W/O ANG PCTRS Status: Chronic QualifierTitle: Coronary Disease-Associated Artery/Lesion type: bypass graft [place] vs. transplanted heart: [place] heart Associated angina: with unspecified angina Qualified Code(s): I25.709 - Atherosclerosis of coronary artery bypass graft(s), unspecified, with unspecified angina pectoris (11) Acute kidney injury Code(s): N17.9 - ACUTE KIDNEY FAILURE, UNSPECIFIED Status: Resolved (12) Hypotension Status: Acute (13) Hypoalbuminemia due to protein-calorie malnutrition Code(s): E46 - UNSPECIFIED PROTEIN-CALORIE MALNUTRITION Status: Acute (14) Hypocalcemia Code(s): E83.51 - HYPOCALCEMIA Status: Acute - Plan Plan: R MCA CVA - identified yesterday on repeat CT brain. Pt is not a candidate for TPA dt seizure w/CVA - pt remains non responsive to command, therefore unclear as to deficits - Echo and Carotid dopplers are pending - Neuro has been consulted, appreciate recommendation - OG in place will restart stain and ASA AMS 2/2 UTI - Pt improved today compared to yesterday in that she is moving all 4 limbs and is responsive to pain. She is currently sedated. Pupils are reactive. - Pt has hx of dementia, however per daughter pt walks and talks at baseline and is generally aware of surroundings. - continue rocephin - Blood cx 1/2 positive for non pathogenic strep. Likely contaminant - Urine cx shows gram neg rods, sensitivity pending - CBC/CMP in am Hypotension - currently requiring levophed at 9 - work to wean today - Pt received 3.8 L IVF yesterday - likely related to yesterday's CVA Anemia - 9.5 appears to be chronic and at baseline based on previous admissions - no concern for acute bleed. Hb in the 12 range on admission was likely concentration Hypoalbuminemia - Proalbumin low suggesting malnutrition - Start tube feeds today Hypocalcemia - Corrects to normal range 8.1 UTI - abx as above. Sensitivities pending for gram neg valeria AoCKD - Cr is improving. PIERRE resolving, however it is unclear as to this pts baseline. 1 years ago baseline appeared to be around 1.1 - IVF at maintenance rate - BMP in am Hypothyroid - home synthroid PO DM - restart known home meds - ACHS accucheck. Add D5 to fluids if BG is low - mod SSI - low carb diet when GCS improves Lactic acidosis - resolved CAD - restart statin when appropriate for PO GERD - restart home meds when appropriate for PO HTN - restart home meds when appropriate for PO. Add PRN IV antihypertensive medication while NPO Dementia - restart home meds when appropriate for PO Dispo: Guarded. Pt shows small improvement today. Continue current treatment plan for UTI until cx result. Maximize medical management of CVA <Kai Dobbs - Last Filed: 07/29/17 08:43> Attending Addendum - Attending Addendum Date/Time: 07/29/17 1130 I personally evaluated the patient and discussed the management with Dr. Dobbs. I agree with the History, Examination, Assessment and Plan documented above with any addition or exceptions noted below. Patient with decompensation yesterday with subsequent CT scan showing evolving infarct. This was no evident on the initial CT obtained at the outside hospital. She began having seizure like activity yesterday afternoon, which likely occurred as a result of her acute CVA. Neuro is on board and recommends maximal CVA mgmt. She had decline in mentation and was intubated yesterday to protect airway. She continues on treatment for UTI with cultures pending. May need to escalate coverage but currently no evidence for that, continue Rocephin. Attempt to wean Levophed as tolerated. Unsure etiology of her hypotension unless related to autonomic instability from her CVA. Her drop in Hgb is likely dilutional and we will continue to monitor. Consider tube feed initiation since patient has not had any form of nutrition in several days. Monitor urine output as currently is borderline oliguric. <Helder Ellis - Last Filed: 07/29/17 11:35>
[2017-07-29] MEDS ORDERED: Aspirin 325 MG TAB PO SCH (09:00)
[2017-07-29] MEDS ORDERED: Enoxaparin Sodium 30 MG/0.3 ML SYRINGE SC SCH (09:00)
[2017-07-29] MEDS ORDERED: Aspirin 300 MG Suppository PR SCH ×2 (09:00)
[2017-07-29] MEDS ORDERED: Famotidine/PF 20 mg/2ml Vial SLOW IVP SCH (09:00)
[2017-07-29] MEDS ORDERED: Levothyroxine Sodium 125 MCG TAB PO SCH (09:15)
[2017-07-29] MEDS ORDERED: Sodium Chloride 0.9% 1,000 ML IV SCH (09:30)
--- NOTE | 2017-07-29 09:40 | ULT ---
CAROTID DUPLEX SONOGRAM: History: CVA FINDINGS: Right: Right carotid artery was unable to be evaluated due to overlying dressing from central venous catheter. Left: Moderate plaque. Color and spectral doppler evaluation, peak systolic velocity of 120 cm/sec, a nd IC to CC ratio of 2.0 suggests stenosis within the mid left cervical ICA approach 50%. There is el evated velocity within the origin of the external carotid artery with peak systolic velocity of 217 c m/sec. Antegrade flow is present within the vertebral artery. IMPRESSION: Atherosclerosis. Elevated velocity within the left carotid arteries as detailed above. Right side was unable to be evaluated. Please consider CT arteriography of the carotid arteries for better detail. POS: MASON
[2017-07-29 11:02] VITALS: BMI 22.1
[2017-07-29] MEDS ORDERED: Morphine 10 MG/ML VIAL SLOW IVP PRN (12:51)
[2017-07-29] MEDS ORDERED: Lorazepam 2 MG/ML VIAL SLOW IVP PRN (12:51)
--- NOTE | 2017-07-29 15:55 | PRG ---
DATE OF SERVICE: 07/29/2017 SUBJECTIVE: Ms. Shane remains responsive. She was intubated. OBJECTIVE: VITAL SIGNS: Overnight with stable heart rate, blood pressure in the 80-90 range. She is on a low d ose of Levophed. Heart rates in the 60s, respiratory rate 14, oximetry is 100%. She was given 1 lit er saline bolus this morning. Intake and output is positive 3777 this morning. LUNGS: Clear. HEART: Regular rhythm. ABDOMEN: Soft. One out of two blood cultures growing an alpha strep. Urine is growing gram-negative valeria. Repeat bl ood cultures from yesterday evening are negative. Chest radiographs unchanged. IMPRESSION: 1. Respiratory failure associated with thrombotic cerebrovascular accident. 2. Seizures yesterday, empirically started on Dilantin after an EEG was done. There is no EEG repor t in the computer. With palliative care's assistance, I had a long meeting with the son and the daughter. There was no negative interaction between the daughter and the son in the room I was meeting with them. I have ex plained to them that she has had devastating thrombotic cerebrovascular accident. I have also explained at this point in time, it is unclear whether or not she will recover from this. The daughter very quickly told me her mother never wanted to be like this and never wanted to be on life support if she were to be like this. The son agreed. After long meeting with the family, the family has agreed to withdraw care and proceed forward with s upportive care and comfort measures, hoping that maybe she will recover, but it is unlikely she will make functional recovery in my opinion. Critical care time was 30 minutes independent and meeting with the family.
[2017-07-29 20:55] VITALS: BP 120/56
[2017-07-29] MEDS ORDERED: Atorvastatin Calcium 40 MG TAB PO SCH (21:00)
[2017-07-30] MEDS: Fosphenytoin Sodium 100 MG in Sodium Chloride 0.9% 50 ML IVPB SCH ×2 (02:20→08:20)
[2017-07-30] MEDS ORDERED: Levothyroxine Sodium 125 MCG TAB PO SCH (06:00)
[2017-07-30] MEDS: INSULIN DETEMIR SC SCH (08:26)
--- NOTE | 2017-07-30 08:57 | PDOC.FM ---
- Subjective Subjective: 87 yo F w/hx of DM, CAD s/p 3vCABG, TIA, HTN, and hypothyroid who was admitted for AMS secondary to UTI. After conversation with Crit care and family yesterday , it was decided to extubate, make the pt DNR, and proceed with comfort care. Pt was successfully extubated and transitioned to medical floor. There were no acute events overnight. Pt remains generally unresponsive, however breathing on her own unlabored. There were no acute events over night. There are no new objective symptoms, however pt continues to have fever up to 102F. - Objective MAR Reviewed: Yes Vital Signs & Weight: Weight Admit Weight 50.6 kg Weight 54.87 kg Most Recent Monitor Data Heart Rate from ECG 69 NIBP 78/36 NIBP BP-Mean 54 Respiration from ECG 21 SpO2 85 I&O: 07/29/17 07/30/17 07/31/17 06:59 06:59 06:59 Intake Total 4597 1401 Output Total 820 900 Balance 3777 501 Result Diagrams: 07/29/17 04:46 07/29/17 04:46 <Kai Dobbs - Last Filed: 07/30/17 08:55> - Objective Vital Signs & Weight: Vital Signs (12 hours) Temp Pulse Resp Pulse Ox 07/30/17 08:00 102.9 F H 73 26 H 97 Weight Admit Weight 50.6 kg Weight 54.87 kg Most Recent Monitor Data Heart Rate from ECG 69 NIBP 78/36 NIBP BP-Mean 54 Respiration from ECG 21 SpO2 85 I&O: 07/29/17 07/30/17 07/31/17 06:59 06:59 06:59 Intake Total 4597 1401 Output Total 820 900 Balance 3777 501 Result Diagrams: 07/29/17 04:46 07/29/17 04:46 <Helder Ellis - Last Filed: 07/30/17 11:57> Phys Exam - Physical Examination Constitutional: NAD HEENT: moist MMs, sclera anicteric Neck: no JVD Respiratory: clear to auscultation bilateral Cardiovascular: RRR systolic murmur, unchanged Gastrointestinal: soft, non-tender, no distention, positive bowel sounds Musculoskeletal: no edema Sponaneous limb movement, some response to touch, will withdraw from pain Skin: no rash, normal turgor <Kai Dobbs - Last Filed: 07/30/17 08:55> Dx/Plan (1) CVA (cerebral vascular accident) Code(s): I63.9 - CEREBRAL INFARCTION, UNSPECIFIED Status: Acute QualifierTitle: Precerebral and cerebral artery: middle cerebral artery Laterality of affected vessel: right (2) Altered mental state Code(s): R41.82 - ALTERED MENTAL STATUS, UNSPECIFIED Status: Acute QualifierTitle: Altered mental status type: somnolence Qualified Code(s) : R40.0 - Somnolence (3) UTI (urinary tract infection) Status: Acute QualifierTitle: Hematuria presence: without hematuria (4) Chronic kidney disease, stage 3, mod decreased GFR Status: Chronic (5) DM2 (diabetes mellitus, type 2) Status: Chronic QualifierTitle: Diabetes mellitus terminal operations supervisor insulin use: with terminal operations supervisor use Diabetes mellitus complication status: without complication Qualified Code(s): E11.9 - Type 2 diabetes mellitus without complications; Z79.4 - terminal press operator (current) use of insulin; Z79.4 - terminal press operator (current) use of insulin; Z79.4 - custodial (current) use of insulin; Z79.4 - terminal press operator (current) use of insulin (6) GERD (gastroesophageal reflux disease) Code(s): K21.9 - GASTRO-ESOPHAGEAL REFLUX DISEASE WITHOUT ESOPHAGITIS Status: Chronic (7) Hypertension Code(s): I10 - ESSENTIAL (PRIMARY) HYPERTENSION Status: Chronic QualifierTitle: Hypertension type: essential hypertension Qualified Code( s): I10 - Essential (primary) hypertension (8) Hypothyroid Code(s): E03.9 - HYPOTHYROIDISM, UNSPECIFIED Status: Chronic QualifierTitle: Hypothyroidism type: unspecified Qualified Code(s): E03.9 - Hypothyroidism, unspecified (9) Mild dementia Code(s): F03.90 - UNSPECIFIED DEMENTIA WITHOUT BEHAVIORAL DISTURBANCE Status: Chronic (10) CAD (coronary artery disease) Code(s): I25.10 - ATHSCL HEART DISEASE OF [place] CORONARY ARTERY W/O ANG PCTRS Status: Chronic QualifierTitle: Coronary Disease-Associated Artery/Lesion type: bypass graft [place] vs. transplanted heart: [place] heart Associated angina: with unspecified angina Qualified Code(s): I25.709 - Atherosclerosis of coronary artery bypass graft(s), unspecified, with unspecified angina pectoris (11) Acute kidney injury Code(s): N17.9 - ACUTE KIDNEY FAILURE, UNSPECIFIED Status: Resolved (12) Hypotension Status: Acute (13) Hypoalbuminemia due to protein-calorie malnutrition Code(s): E46 - UNSPECIFIED PROTEIN-CALORIE MALNUTRITION Status: Acute (14) Hypocalcemia Code(s): E83.51 - HYPOCALCEMIA Status: Acute - Plan Plan: R MCA CVA - pt remains non responsive to command, therefore unclear as to deficits. This was likely thrombotic in nature. - Doppler show atherosclerosis of L carotid, unable to scan right with anterograde flow of L vertebral a - Echo read pending - Pt is currently comfort care only. Will have conversation with family and palliative regarding hospice and goals of care today. - Neuro has been consulted, appreciate recommendation AMS 2/2 UTI - Pt remains stable, however unimproved. She will respond to painful stimuli, however will not spotaneously open eyes or respond to voice. AMS is likely exacerbated by recent CVA - Pt has hx of dementia, however per daughter pt walks and talks at baseline and is generally aware of surroundings. - continue rocephin which shows sensitive in cultures - Blood cx 1/2 positive for non pathogenic strep. Likely contaminant Hypotension - resolved. Pressures currently stable. Anemia - chronic and at baseline based on previous admissions - no concern for acute bleed. Hb in the 12 range on admission was likely concentration Hypoalbuminemia - Proalbumin low suggesting malnutrition - Pt currently NPO given mental status UTI - abx as above. AoCKD - Cr is improving. PIERRE resolving, however it is unclear as to this pts baseline. 1 years ago baseline appeared to be around 1.1 - IVF at maintenance rate - BMP in am Hypothyroid - home synthroid PO DM - restart known home meds - ACHS accucheck. Add D5 to fluids if BG is low - mod SSI - low carb diet when GCS improves Lactic acidosis - resolved CAD - restart statin when appropriate for PO GERD - restart home meds when appropriate for PO HTN - restart home meds when appropriate for PO. Add PRN IV antihypertensive medication while NPO Dementia - restart home meds when appropriate for PO Dispo: Poor prognosis. Unlikely that patient will improve appreciably given recent CVA. Planning for hospice pending palliative consult today <Pulvino,Kai - Last Filed: 07/30/17 08:55> Attending Addendum - Attending Addendum Date/Time: 07/30/17 1156 I personally evaluated the patient and discussed the management with Dr. Dobbs. I agree with the History, Examination, Assessment and Plan documented above with any addition or exceptions noted below. Patient currently agonal breathing, is likely imminent. Palliative care has been paged to visit with family, and Buckle Inspector called to bedside. Morphine and Ativan as needed for air hunger. Family in agreement with plan and hospice has been consulted. <Helder Ellis - Last Filed: 07/30/17 11:57>
[2017-07-30] MEDS: Lactated Ringer's 1,000 ML IV SCH (09:03)
[2017-07-30] MEDS ORDERED: Morphine 4 MG/ML VIAL SLOW IVP PRN (10:30)
[2017-07-30 11:13] VITALS: TEMP 102.9
--- NOTE | 2017-07-31 09:16 | DS-2 ---
DATE OF ADMISSION: 07/27/2017 DATE OF : 07/30/2017 TIME OF : 12:21. ATTENDING PHYSICIAN: Helder Ellis MD RESIDENT: Kai Dobbs DO CAUSE OF : 1. Right middle cerebral artery cerebrovascular accident. 2. Toxic encephalopathy secondary to urinary tract infection. SECONDARY DIAGNOSES: Type 2 diabetes, hypothyroidism, hypertension, coronary artery disease, hyperlipidemia, dementia, tobacco abuse. HOSPITAL COURSE: An 87-year-old female with a history of diabetes; coronary artery disease, status post 3-vessel CABG; TIA; hypertension; dementia; and hypothyroidism was admitted for a toxic encephalopathy secondary to a urinary tract infection. Two days prior to arrival to this facility, the patient had a period of 12-18 hours at home where she was generally unresponsive, and per daughter was apparently seen by EMS at home; however, was not taken to the hospital. On the following day, one day prior to admission, the patient was apparently at her functional baseline for the majority of the day; however, towards the end of the day, she became more tired. On the day of admission, the patient was found to be again unresponsive at home and was transported to emergency department in [place]. Upon arrival in the external emergency room, a head CT and initial labs were completed. Labs at the emergency room were generally inconclusive and there was no immediately obvious source or cause of the patient's altered mental status. The patient's UA in the outside facility did show a 3+ bacteria; however, there were no nitrites or leukocyte esterase. It was noted that the patient had a fever of 100.6 and an elevated lactic acid. The CT brain in the outside facility found no acute process. It did find generalized cerebral atrophy, greater on the left; mild microvascular ischemic changes; and a remote left subinsular cortex infarct. Upon arrival at this facility, the patient was found to be difficult to arouse. Labs here showed a white count of 5.4, potassium of 3.3, chloride of 112, bicarbonate of 20, BUN 37 , creatinine 1.65, and glucose 140. A UA at this facility was positive for nitrites and 4+ bacteria. For that reason, blood and urine cultures were drawn. The patient was treated for UTI as the most likely source of the patient 's altered mental status. The patient was admitted to [facility] due to a GCS of 8 to 9. At that time, the patient was protecting her airway and oxygenating satisfactorily. An ABG at the time of admission found pH 7.39, pCO2 of 39, pO2 of 102.2. The patient was given volume resuscitation and started on Rocephin. It was unclear at the time of admission, whether the patient's elevated creatinine was due to chronic kidney disease on PIERRE. The following day, the patient remained in a stable condition. She remained generally unresponsive to voice commands or physical contact with the exception of the fact that she would withdraw for pain. She would spontaneously open her eyes and search the room, though she would not directly engage anyone. Her vital signs remained stable. She was slightly hypertensive and did have fever; however, she was maintaining adequate oxygenation with approximately 2 liters nasal cannula. The patient was continued on Rocephin for the remainder of the day. On the afternoon of 07/28/2017, there was concern by the nursing for a possible seizure and the patient's physician was called. This seizure was witnessed by the physician and could be described as involving a spasm of the left arm. Neurology was consulted, who ordered a repeat CT and EEG at that time, which showed no seizure activity. However, a CT found evidence of an early acute infarct involving the right MCA. It was also noted there was new sulcal effacement involving the right temporal and perisylvian region. It was determined that the patient was not a candidate for TPA or mechanical thrombectomy due to the likely seizure activity associated with the CVA. The patient was given aspirin RI, as the patient remained n.p.o. due to altered mental status. Later that afternoon, a code green was called at approximately 5 o'clock due to the new CVA. No additional changes were made to the management of the patient due to what was previously described. Shortly thereafter, the patient's blood pressure dropped from approximately 180 systolic down to the mid 70 systolic with a MAP in the 30s to 40s. A right internal jugular central line was placed and the patient was bolused fluids and was started on pressor support with Levophed. Additionally, the patient's GCS was now 6-7 and the patient would seize again, it would be unlikely she can protect her airway. So, decision was made to electively intubate the patient and move her to the CCU from [facility]. The patient tolerated both these procedures well. Her blood pressure stabilized and she maintained oxygenation. The following morning, family discussion was had with both the son and daughter, and it was decided that the patient would not want to be on ventilator long- term or on pressor support. So, decision was made to terminally extubate the patient and discontinue pressor support and move the patient to general medical floor. During the course of the day, the patient had stable vital signs; however, she remained generally unresponsive to anything other than pain. On the morning of 07/30/2017, it was noted at approximately 9 o'clock that the patient began to have agonal breathing. Morphine was administered for air hunger and per the family's request, a hvac estimator was called to the bedside. With the patient's family at bedside, the patient at 12:21. MTDD
--- NOTE | 2017-08-03 09:46 | EEG ---
Referring Physician: Cynthia BURTON EEG # [id number] TEST TYPE: ROUTINE PORTABLE REPORT: AN EEG USING THE INTERNATIONAL TEN-TWENTY SYSTEM OF ELECTRODE PLACEMENT WAS PERFORMED. The background activity was primarily medium amplitude mixed frequency slowing. There appeared to be more prominent slowing over the right hemisphere as compared to the left. There were bursts of EMG artifact over the right hemispheric leads in association with the patient's movements. No definite epileptiform features could be identified in this periods of time. PHOTIC STIMULATION: Was unremarkable. IMPRESSION: THIS EEG SHOWS DIFFUSE SLOWING WITH MORE PROMINENT SLOWING OVER THE RIGHT CONSISTENT WITH A DIFFUSE AND FOCAL ENCEPHALOPATHIC PROCESS. Motion Study Engineer: NORIS Assembly Instructions Writer: [email or web address]
--- NOTE | 2017-10-19 11:37 | PQF ---
CLINICAL DOCUMENTATION IMPROVEMENT CLARIFICATION FORM: ICD-10 Updated PLEASE DO AN ADDENDUM TO THE PROGRESS NOTE WITH ANY DOCUMENTATION UPDATES OR ADDITIONS AND CARRY THROUGH TO DC SUMMARY. THANK YOU. DATE: 10/19/17 ATTN: Dr. Dobbs/ Attending Dr. Ellis Please exercise your independent, professional judgment in responding to the clarification form. Clinical indicators are provided on the bottom of this form for your review Diagnosis: CEREBRAL VASCULAR ACCIDENT. ACUTE Present on Admission (POA): [ ] Yes [ ] No [ x] Unable to determine Coding guidelines require hospitals to identify whether a diagnosis was present on admission (POA) or not. To accurately assign the appropriate POA indicator, this information must be clearly documented within the medical record. CLINICAL INDICATORS - SIGNS / SYMPTOMS / LABS H&P 07/27/17: OFF ALL MEDS CURRENTLY. ON THURSDAY, PT WAS DIFFICULT TO AROUSE PER FAMILY & SLEPT MAJORITY OF DAY & NIGHT. AWOKE THURSDAY W/ NORMAL MENTATION. ATE APPROPRIATELY DURING DAY UNTIL SKIPPED DINNER. PT WENT TO BED & HAS BEEN DIFFICULT TO AROUSE SINCE THEN. FAMILY DENIES ANY SYMPTOMS EXCEPT DIFFICULTY TO AROUSE & IRRITABILITY WHEN TOUCHED. ENDORSED INCONTINENCE ON THURSDAY WHICH IS NEW PN 07/29/17: IN OUTSIDE ED ON THE DAY OF ADMISSION A CT BRAIN WAS NEGATIVE FOR ACUTE PROCESSES NOTED IN H&P. WHAT WAS NOTED WAS GENERALIZED CEREBRAL ATROPHY GREATER ON THE LEFT, MILD MICROVASCULAR ISCHEMIC CHANGES, & A REMOTE LEFT SUBINSULAR CORTEX INFARCT NOTED. WHILE CVA WAS CONSIDERED ON ADMISSION, THE MORE LIKELY SOURCE OF AMS WITH THE GIVEN INFORMATION WAS INFECTIOUS. EVALUATED PT ON ROUNDS YESTERDAY MORNING & THERE WAS NO APPARENT SEIZURE LIKE ACTIVITY. UPON WITNESSING A PARTIAL SEIZURE YESTERDAY AFTERNOON NEURO WAS CONSULTED & FURTHER WORK UP FOUND WHAT APPEARS TO BE A NEW CVA. RISKS: H&P 07/27/17: 87 yo F W/HX OF DM, CAD S/P 3VCABG, TIA, HTN & HYPOTHYROID HERE W/ COMPLAINT OF AMS FOR 2 DAYS. ALTERED MENTAL STATUS. SOMNOLENCE. UTI. PIERRE. DM 2, CHRONIC HYPERTENSION. CAD, MILD DEMENTIA. AMS 2/2 UTI. PIERRE ON CKD 3. TREATMENT: H&P 07/27/17: ADMIT TO IMCU DT GCS OF 8 CPOE 07/27: ASPIRIN 81 MG PO DAILY. DC'D 07/28/17. ORDER 4/3: ASPIRIN 325 MG AR NOW. CPOE 4/3: ASPIRIN 300 MG AR Q DAILY. DC'D 07/29/17 CPOE 07/28: NEUROLOGY CONSULT (This form is maintained as a part of the permanent medical record) 2015 [employer]. All Rights Reserved Ros Patterson RN, BSN [email or web address] Office: [phone] [facility]
--- NOTE | 2017-10-19 12:22 | PQF ---
CLINICAL DOCUMENTATION IMPROVEMENT CLARIFICATION FORM: ICD-10 Updated PLEASE DO AN ADDENDUM TO THE PROGRESS NOTE WITH ANY DOCUMENTATION UPDATES OR ADDITIONS AND CARRY THROUGH TO DC SUMMARY. THANK YOU. DATE: 10/19/17 ATTN: Dr. Dobbs/ Attending Dr. Ellis Please exercise your independent, professional judgment in responding to the clarification form. Clinical indicators are provided on the bottom of this form for your review Please check appropriate box(s): [ ] Septic Shock [ ] Neurogenic Shock [ ] Hypovolemic Shock [ ] Cardiogenic Shock [ ] Shock Unspecified [ ] Other diagnosis [ x] Unable to determine In addition, please specify: Present on Admission (POA): [ ] Yes [ x ] No [ ] Unable to determine For continuity of documentation, please document condition throughout progress notes and discharge summary. Thank You. CLINICAL INDICATORS - SIGNS / SYMPTOMS / LABS PN 07/29/17: YESTERDAY WAS COMPLICATED BY A NEW ONSET SEIZURE 2/2 NEW R MCA CVA WHICH RESULTED IN A CODE GREEN BEING CALLED. PT WENT FROM BP IN THE 180S SYSTOLIC IMMEDIATELY FOLLOWING CVA TO 60-70 SYSTOLIC & IS NOW REQUIRING PRESSURE SUPPORT VIA R IJ THAT WAS PLACED YESTERDAY. RISKS: H&P 07/27/17: 87 yo F W/HX OF DM, CAD S/P 3VCABG, TIA HTN & HYPOTHYROID HERE W/ COMPLAINT OF AMS FOR 2 DAYS. IN THIS ED SHE WAS FOUND TO BE HYPERGLYCEMIC 494, LACTIC ACID INCREASED 4.9 & A NEW UA WAS POSITIVE FOR NITRITES & 4+ BACTERIA. AMS 2/2 UTI. PIERRE ON CKD 3. PN 07/29: R MCA CVA. AMS 2/2 UTI. HYPOTENSION PULMONOLOGY PN 07/29: RESPIRATORY FAILURE ASSOCIATED W/ THROMBOTIC CVA. TREATMENT: CPOE 4/2: ROCEPHIN 1 GM IV Q 24 HR EVENT NOTE 07/28/17: CVC INSERTION PROCEDURE. CPOE 4/3: LEVOPHED 250 ML IV PEN TO MAINTAIN MAP >65 CPOE 4/3: RESP: VENT CONTINUOUS (This form is maintained as a part of the permanent medical record) 2014 [employer]. All Rights Reserved Ros Patterson RN, BSN [email or web address] Office: [phone] [facility]
== END 2017-07-30 12:27 | disposition expired | DRG 91 ==
LOC: ERS 12:10 → ERHOLD 14:37 → IMCU/EMU 18:42 → CCU 07-28 19:20 → T4-A 07-29 18:13
PROVIDERS: ADMIT Student in an Organized Health Care Education/Training Program; ATTEND Student in an Organized Health Care Education/Training Program
PROC: 5A1935Z Respiratory Ventilation, Less than 24 Consecutive Hours (ICD-10-PCS; principal; 2017-07-28)
PROC: 0BH17EZ Insertion of Endotracheal Airway into Trachea, Via Natural or Artificial Opening (ICD-10-PCS; 2017-07-28)
PROC: 02HV33Z Insertion of Infusion Device into Superior Vena Cava, Percutaneous Approach (ICD-10-PCS; 2017-07-28)
PROC: B548ZZA Ultrasonography of Superior Vena Cava, Guidance (ICD-10-PCS; 2017-07-28)
DX: G92 Toxic encephalopathy (principal); R40.2214 Coma scale, best verbal response, none, 24 hours or more after hospital admission; I63.311 Cerebral infarction due to thrombosis of right middle cerebral artery; R40.2114 Coma scale, eyes open, never, 24 hours or more after hospital admission; N39.0 Urinary tract infection, site not specified; E46 Unspecified protein-calorie malnutrition; N17.9 Acute kidney failure, unspecified; E87.2 Acidosis; I95.9 Hypotension, unspecified; E83.51 Hypocalcemia; I25.10 Atherosclerotic heart disease of native coronary artery without angina pectoris; Z95.1 Presence of aortocoronary bypass graft; E03.9 Hypothyroidism, unspecified; F03.90 Unspecified dementia, unspecified severity, without behavioral disturbance, psychotic disturbance, mood disturbance, and anxiety; R40.2354 Coma scale, best motor response, localizes pain, 24 hours or more after hospital admission; R56.9 Unspecified convulsions; I12.9 Hypertensive chronic kidney disease with stage 1 through stage 4 chronic kidney disease, or unspecified chronic kidney disease; E11.22 Type 2 diabetes mellitus with diabetic chronic kidney disease; R29.735 NIHSS score 35; Z66 Do not resuscitate; N18.3 Chronic kidney disease, stage 3 (moderate); Z68.20 Body mass index [BMI] 20.0-20.9, adult; I65.22 Occlusion and stenosis of left carotid artery; Z51.5 Encounter for palliative care; D64.9 Anemia, unspecified; E11.65 Type 2 diabetes mellitus with hyperglycemia; R57.8 Other shock
CPT/HCPCS: 36415; 36416; 51701; 70450; 71045; 80053; 80306; 80307; 81003; 81015; 82140; 82330; 82435; 82565; 82803; 82805; 82947; 83605; 83735; 84132; 84134; 84295; 84443; 85014; 85025; 87040; 87077; 87086; 87149; 87186; 93005; 93306; 93880; 94002; 94003; 95816; 95819; 96365; 96374; A4216; A4353; J0696; J1650; J1815; J2250; J2270; J3010; J3475; J3480; J7050; Q2009; S0028